=== PATIENT | male | born 1960 | race Caucasian/White ===

== ENCOUNTER 2018-09-01 21:39 | Observation (INO) | payer MEDICAID ==
[~2018-09-01] VITALS: Ht 172.7 cm; Wt 53.1 kg
--- NOTE | 2018-09-01 22:32 | NUR ---
assessment made. chart up for MD to see.
--- NOTE | 2018-09-01 22:44 | NUR ---
patient spitting lots of mucus.
[2018-09-01] MEDS ORDERED: methylPREDNISolone SOD SUCC 125 MG/2 ML IVPush STA (22:45)
--- NOTE | 2018-09-01 22:46 | NUR ---
PA at bedside.
--- NOTE | 2018-09-01 22:49 | NUR ---
X ray at bedside.
[2018-09-01] MEDS ORDERED: ALBUTEROL/IPRATROPIUM 2.5MG/0.5MG, 3 ML ONE (22:55)
[2018-09-01] MEDS ORDERED: methylPREDNISolone SOD SUCC 125 MG/2 ML ONE (22:57)
[2018-09-01] MEDS ORDERED: ALBUTEROL/IPRATROPIUM 2.5MG/0.5MG, 3 ML NPPB SCH (23:00)
[2018-09-01 23:01] LABS: BASOPHILS # (AUTO) 0.05 x10^3/uL (0-0.1); BASOPHILS % (AUTO) 1 % (0-1); EOSINOPHILS # (AUTO) 0.49 x10^3/uL (0-0.4); EOSINOPHILS % (AUTO) 5 % (1-7); LYMPHOCYTES # (AUTO) 2.29 x10^3/uL (1-3.4); LYMPHOCYTES % (AUTO) 25 % (22-44); MD NO; MEAN CORPUSCULAR HEMOGLOBIN 33.1 pg (27.5-34.5); MEAN CORPUSCULAR VOLUME 100.4 fL (81-97); MEAN PLATELET VOLUME 8.3 fL (7.4-10.4); MONOCYTES # (AUTO) 0.91 x10^3/uL (0.2-0.8); MONOCYTES % (AUTO) 10 % (2-9); NEUTROPHILS # (AUTO) 5.35 x10^3/uL (1.8-6.8); NEUTROPHILS % (AUTO) 59 % (42-75); PLATELET COUNT 178 x10^3/uL (130-400); RED BLOOD COUNT 5.19 x10^6/uL (4.38-5.82); RED CELL DISTRIBUTION WIDTH 14.9 % (9.4-14.8)
--- NOTE | 2018-09-01 23:06 | NUR ---
IV placed. medicated. RT at bedside for breathing treatment.
[2018-09-01 23:12] LABS: ALANINE AMINOTRANSFERASE 24 U/L (12-78); ALBUMIN 3.5 g/dL (3.4-5.0); ANION GAP 11 mmol/L (5-15); CALCIUM 8.8 mg/dL (8.5-10.1); CHLORIDE 103 mmol/L (98-107)
[2018-09-01 23:16] LABS: ALKALINE PHOSPHATASE 92 U/L (45-117); BILIRUBIN,TOTAL 0.5 mg/dL (0.2-1.0); CREATININE 0.74 mg/dL (0.7-1.3); TOTAL PROTEIN 7.8 g/dL (6.4-8.2); TROPONIN I < 0.015 ng/mL (0.000-0.045)
[2018-09-01 23:22] LABS: INTERNATIONAL NORMALIZED RATIO 0.9 (0.93-1.1); PROTHROMBIN TIME 9.5 Seconds (9.6-11.5)
--- NOTE | 2018-09-01 23:29 | NUR ---
labs and X ray resulted. chart up for MD to re-eval.
--- NOTE | 2018-09-01 23:54 | NUR ---
ERP at bedside for re-evaluation.
--- NOTE | 2018-09-01 23:59 | NUR ---
patient's oxygen saturation dropped to 87 % RA. 95 % on 2 liters.
[2018-09-02] MEDS ORDERED: AMLO-150 PO (00:09)
[2018-09-02] MEDS ORDERED: ALBU6.7H IH (00:11)
[2018-09-02] MEDS ORDERED: LOSA50TA14 PO (00:11)
[2018-09-02] MEDS ORDERED: TIOT18CA INH (00:11)
[2018-09-02 01:08] VITALS: BP 143/86
[2018-09-02 01:20] VITALS: BP 143/86
[2018-09-02] MEDS ORDERED: ENOXAPARIN 40 MG/0.4 ML SQ SCH (02:00)
[2018-09-02] MEDS ORDERED: DOXYCYCLINE 100 MG in DEXTROSE 5% 250 ML IVPB SCH (02:00)
[2018-09-02] MEDS: ALBUTEROL/IPRATROPIUM 2.5MG/0.5MG, 3 ML NPPB SCH ×2 (02:21→07:00)
[2018-09-02] MEDS ORDERED: IPRATROPIUM 0.5 MG/2.5 ML INHA NPPB SCH (06:00)
[2018-09-02 07:03] VITALS: BP 117/63
[2018-09-02] MEDS ORDERED: POTASSIUM CHLORIDE 20 MEQ TAB.ER.PRT PO ONE (08:30)
[2018-09-02] MEDS ORDERED: AMLODIPINE 5 MG TABLET PO SCH (09:00)
[2018-09-02] MEDS ORDERED: LOSARTAN 50MG TABLET PO SCH (09:00)
[2018-09-02] MEDS ORDERED: POTASSIUM CHLORIDE 20 MEQ, MAGNESIUM SULFATE 1 GM, MVI ADULT 10 ML, THIAMINE 200 MG, FO... IV SCH (10:30)
[2018-09-02] MEDS ORDERED: PRED10TA PO (12:01)
[2018-09-02] MEDS ORDERED: DOXY200T3 PO (12:03)
[2018-09-02 12:36] VITALS: BP 116/63
[2018-09-02] MEDS ORDERED: ALBUTEROL/IPRATROPIUM 2.5MG/0.5MG, 3 ML NPPB SCH (15:00)
== END 2018-09-02 14:00 | disposition home or self-care (01) ==
LOC: ED 23:35 → EDIP 09-02 00:21 → INTOOBSV 09-02 00:21 → 4EST 09-02 01:24
PROVIDERS: ADMIT Family Medicine; ATTEND Family Medicine
DX: J96.21 Acute and chronic respiratory failure with hypoxia (principal); J44.1 Chronic obstructive pulmonary disease with (acute) exacerbation; R25.2 Cramp and spasm; L60.0 Ingrowing nail; I10 Essential (primary) hypertension; E46 Unspecified protein-calorie malnutrition; E16.2 Hypoglycemia, unspecified; Z68.1 Body mass index [BMI] 19.9 or less, adult; Z79.899 Other long term (current) drug therapy; Z88.5 Allergy status to narcotic agent; Z87.891 Personal history of nicotine dependence
CPT/HCPCS: 36415; 71045; 80053; 83880; 84134; 84484; 85025; 85610; 85730; 93005; 94640; 96365; 96372; 96375; 99284; G0378; J1650; J2930; J3411; J3475; J3480; J7060; J7512; J7620

== ENCOUNTER 2018-10-02 13:56 | Outpatient (CLI) | payer MEDICAID | END 2018-10-02 23:59 | disposition home or self-care (01) | LOC: CFH 13:56 | PROVIDERS: ATTEND Internal Medicine | DX: J43.2 Centrilobular emphysema (principal); R91.1 Solitary pulmonary nodule; J84.10 Pulmonary fibrosis, unspecified | CPT/HCPCS: 71250 ==

== ENCOUNTER → 2019-04-10 | Outpatient (CLI) | payer MEDICAID ==
[~2019-04-10] MED LIST: ALBU6.7H8 IH; AMLO-150 PO; DOXY200T8 PO; LOSA50TA14 PO; PRED10TA PO; TIOT18CA INH
== END | disposition home or self-care (01) ==
LOC: CFH 09:07
PROVIDERS: ATTEND Internal Medicine
DX: J84.10 Pulmonary fibrosis, unspecified (principal); J44.9 Chronic obstructive pulmonary disease, unspecified; R91.1 Solitary pulmonary nodule; I10 Essential (primary) hypertension; F17.210 Nicotine dependence, cigarettes, uncomplicated; R09.02 Hypoxemia
CPT/HCPCS: 71250

== ENCOUNTER → 2020-02-08 | Outpatient (CLI) | payer MEDICAID | END | disposition home or self-care (01) | LOC: CFH 12:08 | PROVIDERS: ATTEND Internal Medicine | DX: J43.9 Emphysema, unspecified (principal); J84.10 Pulmonary fibrosis, unspecified; R91.1 Solitary pulmonary nodule; J98.4 Other disorders of lung | CPT/HCPCS: 71250 ==